=== PATIENT | male | born 1980 | race Asian ===

== ENCOUNTER 2019-04-24 08:37 | Emergency (ER) | payer OTHER ==
[~2019-04-24] VITALS: Ht 182.9 cm; Wt 83.9 kg
[2019-04-24 08:39] VITALS: Ht 182.9 cm; Wt 83.9 kg
[2019-04-24 11:25] VITALS: BP 134/75
== END 2019-04-24 11:25 | disposition home or self-care (01) ==
LOC: ED 08:37
DX: S16.1XXA Strain of muscle, fascia and tendon at neck level, initial encounter (principal); S39.012A Strain of muscle, fascia and tendon of lower back, initial encounter; R51 Headache; Z88.0 Allergy status to penicillin; V43.52XA Car driver injured in collision with other type car in traffic accident, initial encounter; Y93.I9 Activity, other involving external motion; Y92.488 Other paved roadways as the place of occurrence of the external cause; Y99.8 Other external cause status
CPT/HCPCS: J1885